=== PATIENT | female | born 1950 | race Caucasian/White ===

== ENCOUNTER 2017-01-25 18:53 | Emergency (ER) | payer MEDICARE ==
[2017-01-25 19:01] VITALS: BP 123/73
--- NOTE | 2017-01-25 19:25 | ER Document Report ---
ED Skin Rash/Insect Bite/Abscs - General Chief Complaint: Skin Problem Stated Complaint: SKIN PROBLEM Time Seen by Provider: 01/25/17 19:24 Notes: The patient is a 66-year-old female who presents with several weeks of a diffuse pruritic rash. She is homeless for the past 2 months and was living [place]. She saw 2 prior physicians for this and was started on 2 on no medications. There is mild improvement of her symptoms after she thinks an antibiotic. She has never heard of permethrin. She denies fevers, chest pain, shortness of breath, nausea or vomiting. TRAVEL OUTSIDE OF THE [place] IN LAST 30 DAYS: No Past Medical History - General Information source: Patient - Social History Smoking Status: Unknown if Ever Smoked Family History: Reviewed & Not Pertinent Renal/ Medical History: Denies: Hx Peritoneal Dialysis Review of Systems - Review of Systems Notes: REVIEW OF SYSTEMS: CONSTITUTIONAL: -fevers, -chills EENT: -eye pain, -difficulty swallowing, -nasal congestion CARDIOVASCULAR:-chest pain, -syncope. RESPIRATORY: -cough, -SOB GASTROINTESTINAL: -abdominal pain, - nausea, -vomiting, -diarrhea GENITOURINARY: -dysuria, -hematuria MUSCULOSKELETAL: -back pain, -neck pain SKIN: +rash HEMATOLOGIC: -easy bruising or bleeding. LYMPHATIC: -swollen, enlarged glands. NEUROLOGICAL: -altered mental status or loss of consciousness, -headache, - neurologic symptoms PSYCHIATRIC: -anxiety, -depression. ALL OTHER SYSTEMS REVIEWED AND NEGATIVE. Physical Exam - Vital signs Vitals: Temp Pulse Resp BP Pulse Ox 97.8 F 68 12 123/73 100 01/25/17 18:56 01/25/17 18:56 01/25/17 18:56 01/25/17 18:56 01/25/17 18:56 - Notes Notes: PHYSICAL EXAMINATION: GENERAL: Well-appearing, well-nourished and in no acute distress. HEAD: Atraumatic, normocephalic. EYES: Pupils equal round and reactive to light, extraocular movements intact, sclera anicteric, conjunctiva are normal. ENT: nares patent, oropharynx clear without exudates. Moist mucous membranes. NECK: Normal range of motion, supple without lymphadenopathy LUNGS: Breath sounds clear to auscultation bilaterally and equal. No wheezes rales or rhonchi. HEART: Regular rate and rhythm without murmurs ABDOMEN: Soft, nontender, normoactive bowel sounds. No guarding, no rebound. No masses appreciated. EXTREMITIES: Normal range of motion, no pitting or edema. No cyanosis. NEUROLOGICAL: Cranial nerves grossly intact. Normal speech, normal gait. Normal sensory and motor exams. PSYCH: Normal mood, normal affect. SKIN: Diffuse erythematous crusted over pustule lesions without drainage. Located in finger webs. Course - Re-evaluation Re-evalutation: Patient has no fever. Will begin permethrin for possible scabies and Keflex for what appears to be superinfection of some of her lesions from scratching. There may also be skin popping that was causing some of her symptoms. Told her to follow with her primary care physician and dermatology. - Vital Signs Vital signs: Temp Pulse Resp BP Pulse Ox 97.8 F 68 12 123/73 100 01/25/17 18:56 01/25/17 18:56 01/25/17 18:56 01/25/17 18:56 01/25/17 18:56 Discharge - Discharge Clinical Impression: Rash Condition: Stable Disposition: HOME, SELF-CARE Additional Instructions: Use the permethrin and Keflex as instructed. Follow-up with your primary care physician for a dermatology referral. Prescriptions: Cephalexin Monohydrate [Keflex 500 mg Capsule] 500 mg PO Q8H 7 Days capsule Permethrin [Nix 1% Lotion 59 ml] 1 applic TP ONCE PRN 2 Days bottle PRN Reason: Referrals: AUDI CHI DO [ACTIVE STAFF] - Follow up as needed
== END 2017-01-25 19:36 | disposition home or self-care (01) ==
LOC: ER 18:53
DX: R21 Rash and other nonspecific skin eruption (principal)
CPT/HCPCS: 99282

== ENCOUNTER 2017-09-29 22:37 | Emergency (ER) | payer MEDICARE ==
--- NOTE | 2017-09-30 00:55 | ER Document Report ---
ED General - General Chief Complaint: Skin Problem Stated Complaint: SKIN PROBLEM Time Seen by Provider: 09/30/17 00:46 Notes: Patient is a 66-year-old female who presents with complaint of ulcerations on her bilateral forearms. There is no lesions on the palms. Patient says she has similar lesions back in November and they spontaneously went away. She has scarring from his previous lesions were. They came back a few weeks ago. She saw a fire engine pump operator and had a biopsy performed. She said she try to call the fire engine pump operator but she was told to call back. She says she when she called back later she had a voicemail and they are closed today and therefore she came to the ER to have us look at them. She denies any history of any autoimmune diseases. She denies any history of HIV or hepatitis C. She denies any associated fevers with it. She has no other complaints at this time. No new medications. TRAVEL OUTSIDE OF THE [place] IN LAST 30 DAYS: No - Related Data Allergies/Adverse Reactions: No Known Allergies Allergy (Unverified 04/13/17 22:59) Past Medical History - Social History Smoking Status: Never Smoker Frequency of alcohol use: None Drug Abuse: None Family History: Reviewed & Not Pertinent - Past Medical History Cardiac Medical History: Reports: Hx Hypertension Endocrine Medical History: Reports: Hx Diabetes Mellitus Type 1, Hx Hypothyroidism Renal/ Medical History: Denies: Hx Peritoneal Dialysis Review of Systems - Review of Systems Notes: My Normal Review Basic REVIEW OF SYSTEMS: CONSTITUTIONAL : Denies fever, chills, or sweats. Denies recent illness. EENT: Denies eye, ear, throat, or mouth pain or symptoms. Denies nasal or sinus congestion. RESPIRATORY: Denies cough, cold, or chest congestion. Denies shortness of breath, difficulty breathing, or wheezing. GASTROINTESTINAL: Denies abdominal pain. Denies nausea, vomiting, or diarrhea. Denies constipation. Last BM: MUSCULOSKELETAL: Denies neck or back pain or joint pain or swelling. SKIN: Rash on bilateral forearms. NEUROLOGICAL: Denies altered mental status or loss of consciousness. Denies headache. Denies weakness or paralysis or loss of use of either side. Denies problems with gait or speech. Denies sensory or motor loss. ALL OTHER SYSTEMS REVIEWED AND NEGATIVE. Physical Exam - Vital signs Vitals: Temp Pulse Resp BP Pulse Ox 97.9 F 101 H 18 138/83 H 98 09/29/17 23:03 09/29/17 23:03 09/29/17 23:03 09/29/17 23:03 09/29/17 23:03 - Notes Notes: General Appearance: Well nourished, alert, cooperative, no acute distress, mild obvious discomfort. Vitals: reviewed, See vital signs table. Head: no swelling or tenderness to the head Eyes: PERRL, EOMI, Conjuctiva clear Mouth: No decreasd moisture Throat: No tonsillar inflammation, No airway obstruction, No lymphadenopathy Lungs: No wheezing, No rales, No rhonci, No accessory muscle use, good air exchange bilaterally. Heart: Normal rate, Regular rythm, No murmur, no rub Extremities: strength 5/5 in all extremities, good pulses in all extremities, no swelling or tenderness in the extremities, no edema. Skin: warm, dry, appropriate color, patient has many ulcerations mostly over the dorsum of the bilateral forearms with very localized surrounding erythema. She has several areas of white scarring on both forearms from where she has had this rash in the past. Neuro: speech clear, oriented x 3, normal affect, responds appropriately to questions. Course - Re-evaluation Re-evalutation: 09/30/17 06:03 Patient later admitted that she may have slept with someone who she thinks may have had hepatitis C. Therefore aborted hepatitis panel told her that the results would not be back for 1-2 days. I gave her the culture callback number informed her that she must call them to get her results and that she needs follow-up with GI. She does have some mildly elevated liver enzymes. Her rash can be seen with that of hepatitis C. Informed is also extremely important she follows up with a fire engine pump operator to get her results from her biopsy as this will most likely give us the most information as to what could be causing her rash. I encouraged her return to ER if she has fevers, vomiting, or she feels that the rash is definitely spreading or worsening. Patient agrees with plan will be discharged home. Dictation of this chart was performed using voice recognition software; therefore, there may be some unintended grammatical errors. - Vital Signs Vital signs: Temp Pulse Resp BP Pulse Ox 98.7 F 63 16 123/72 98 09/30/17 02:28 09/30/17 02:28 09/30/17 02:28 09/30/17 02:28 09/30/17 02:28 - Laboratory Result Diagrams: 09/30/17 01:00 09/30/17 01:00 Laboratory results interpreted by me: 09/30/17 09/30/17 01:00 01:00 RDW 15.7 H Sodium 147.5 H Est GFR (Non-Af Amer) 52 L Glucose 121 H AST 113 H ALT 157 H Discharge - Discharge Clinical Impression: Rash Condition: Good Disposition: HOME, SELF-CARE Additional Instructions: Please call [phone] to get your Hepatitis results. You do have some elevated liver enzymes. This could be related to Hepatitis or possibly another cause. Please follow up with the GI physician, Dr. Tom, for reevaluation and treatment of Hepatitis if your test results are positive. If your Hepatitis results are negative you can follow up with your primary care doctor in 1 week to recheck your liver enzymes to make sure they are normalizing. Please follow up with your fire engine pump operator to get the results of your biopsy. Please return to the ER immediately if you develop fevers, worsening rash, or feel unwell. Forms: Return to Work Referrals: FRANCISCO TOM MD [ACTIVE STAFF] - Follow up in 3-5 days
[2017-09-30 01:09] LABS: ABSOLUTE BASOPHILS # (AUTO) 0.1 10^3/uL (0.0-0.2); ABSOLUTE EOSINOPHILS # (AUTO) 0.2 10^3/uL (0.0-0.6); ABSOLUTE MONOCYTES (AUTO) 0.5 10^3/uL (0.1-1.4); ABSOLUTE NEUT (AUTO) 5.2 10^3/uL (1.7-8.2); BASOPHILS % (AUTO) 0.7 % (0-2); EOSINOPHILS % (AUTO) 2.1 % (0-6); HEMATOCRIT 39.4 % (36.0-47.0); HEMOGLOBIN 12.8 g/dL (12.0-15.5); LYMPHOCYTES % (AUTO) 25.1 % (13-45); MEAN CORPUSCULAR HEMOGLOBIN 29.2 pg (27.0-33.4); MEAN CORPUSCULAR HGB CONC 32.6 g/dL (32.0-36.0); MEAN CORPUSCULAR VOLUME 90 fl (80-97); MONOCYTES % (AUTO) 6.4 % (3-13); PLATELET COUNT 270 10^3/uL (150-450); RED BLOOD COUNT 4.38 10^6/uL (3.72-5.28); RED CELL DISTRIBUTION WIDTH 15.7 % (11.5-14.0); SEGMENTED NEUTROPHILS % (AUTO) 65.7 % (42-78); TOTAL CELLS COUNTED % (AUTO) 100 %
[2017-09-30 01:42] LABS: BLOOD UREA NITROGEN 17 mg/dL (7-20); CALCIUM 9.5 mg/dL (8.4-10.2); CARBON DIOXIDE 25 mmol/L (22-30); CHLORIDE 107 mmol/L (98-107); GLUCOSE 121 mg/dL (75-110); POTASSIUM 4.5 mmol/L (3.6-5.0); SODIUM 147.5 mmol/L (137-145)
[2017-09-30 01:43] LABS: ALANINE AMINOTRANSFERASE 157 U/L (9-52); ALBUMIN 4.1 g/dL (3.5-5.0); ALKALINE PHOSPHATASE 123 U/L (38-126); ANION GAP 16 (5-19); ASPARTATE AMINO TRANSFERASE 113 U/L (14-36); BILIRUBIN,DIRECT 0.4 mg/dL (0.0-0.4); BILIRUBIN,TOTAL 0.4 mg/dL (0.2-1.3); TOTAL PROTEIN 7.5 g/dL (6.3-8.2)
[2017-09-30 02:29] VITALS: BP 123/72
[2017-10-01 08:42] LABS: HEPATITIS A AB IGM Negative (Negative); HEPATITIS B CORE AB IGM Negative (Negative); HEPATITS B SURFACE ANTIGEN Negative (Negative)
[2017-10-01 08:50] LABS: HEPATITIS C VIRUS ANTIBODY >11.0 s/co ratio (0.0-0.9)
== END 2017-09-30 03:50 | disposition home or self-care (01) ==
LOC: ER 22:37
DX: R21 Rash and other nonspecific skin eruption (principal); R74.8 Abnormal levels of other serum enzymes; E10.9 Type 1 diabetes mellitus without complications; I10 Essential (primary) hypertension; Z20.2 Contact with and (suspected) exposure to infections with a predominantly sexual mode of transmission
CPT/HCPCS: 36415; 80053; 80074; 85025; 86701; 99283

== ENCOUNTER 2017-11-12 10:18 | Emergency (ER) | payer MEDICARE ==
[2017-11-12] MEDS ORDERED: DIPH/PERTUSS(ACELL)/TETANUS VAC/PF 0.5 ML SYR (>=10YO) IM ONE (11:07)
--- NOTE | 2017-11-12 11:09 | ER Document Report ---
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 Patient fell through a hole in her ground-level floor and fell back and getting her head against the door. She denies loss of consciousness but felt dazed. She does have a lack which is approximately C3 centimeters and superficial to the back of the head. She does not have any cervical spine or thoracic or lumbar spine tenderness. GCS is 15 in triage TRAVEL OUTSIDE OF THE [place] IN LAST 30 DAYS: No - Related Data Allergies/Adverse Reactions: No Known Allergies Allergy (Verified 11/12/17 10:21) Past Medical History - Past Medical History Cardiac Medical History: Reports: Hx Hypertension Endocrine Medical History: Reports: Hx Diabetes Mellitus Type 1, Hx Hypothyroidism Renal/ Medical History: Denies: Hx Peritoneal Dialysis Physical Exam - Vital signs Vitals: Temp Pulse Resp BP Pulse Ox 98.8 F 67 16 105/65 97 11/12/17 10:30 11/12/17 10:30 11/12/17 10:30 11/12/17 10:30 11/12/17 10:30 Course - Vital Signs Vital signs: Temp Pulse Resp BP Pulse Ox 98.8 F 67 16 105/65 97 11/12/17 10:30 11/12/17 10:30 11/12/17 10:30 11/12/17 10:30 11/12/17 10:30
--- NOTE | 2017-11-12 11:28 | RADIOLOGY REPORT (SQ) ---
EXAM DESCRIPTION: CT HEAD WITHOUT COMPLETED DATE/TIME: 11/12/2017 11:18 am REASON FOR STUDY: fall, h/o shunt COMPARISON: None. TECHNIQUE: Axial images acquired through the brain without intravenous contrast. Images reviewed wi th bone, brain and subdural windows. Additional sagittal and coronal reconstructions were generated. Images stored on PACS. All CT scanners at this facility use dose modulation, iterative reconstruction, and/or weight based d osing when appropriate to reduce radiation dose to as low as reasonably achievable (ALARA). [facility]: Dose Right [facility]: CareDose [facility]: Dose Right [facility]: Teradose 4D [facility]: Smart Motribe RADIATION DOSE: CT Rad equipment meets quality standard of care and radiation dose reduction techniq ues were employed. CTDIvol: 53.2 mGy. DLP: 1070 mGy-cm. mGy. LIMITATIONS: None. FINDINGS: VENTRICLES: Prominent. CEREBRUM: No masses. No hemorrhage. No midline shift. Areas of low density in the white matter mos t likely due to chronic micro-vascular ischemic change. No evidence for acute infarction. Ventricul ar shunt via left frontal approach tip in the 3rd ventricle. CEREBELLUM: No masses. No hemorrhage. No alteration of density. No evidence for acute infarction. EXTRAAXIAL SPACES: Mild age-related involutional change. No fluid collections. No masses. ORBITS AND GLOBE: No intra- or extraconal masses. Normal contour of globe without masses. CALVARIUM: No fracture. PARANASAL SINUSES: No fluid or mucosal thickening. SOFT TISSUES: No mass or hematoma. OTHER: No other significant finding. IMPRESSION: MILD CHRONIC CHANGES OF ATROPHY AND MICROVASCULAR ISCHEMIA. Ventricular shunt catheter. NO ACUTE PROCESS. EVIDENCE OF ACUTE STROKE: NO. TECHNICAL DOCUMENTATION: JOB ID: [id number] Quality ID # [id number]: Final reports with documentation of one or more dose reduction techniques (e.g., Au tomated exposure control, adjustment of the mA and/or kV according to patient size, use of iterative reconstruction technique) 2010 [employer]- All Rights Reserved Reading location - IP/workstation name: [email or web address]
--- NOTE | 2017-11-12 12:14 | RADIOLOGY REPORT (SQ) ---
EXAM DESCRIPTION: SHUNTOGRAM SERIES COMPLETED DATE/TIME: 11/12/2017 11:37 am REASON FOR STUDY: h/o v/p shunt COMPARISON: None. TECHNIQUE: AP view of the head and neck, chest, abdomen, and pelvis. LIMITATIONS: None. FINDINGS: Ventricular shunt tubing entering the skull at vertex. The tubing terminates at the skull with no tubing in the soft tissues. Visualized portions of the chest, abdomen, and pelvis, or unremarkable. Hardware in the cervical spi ne. IMPRESSION: VENTRICULAR SHUNT TUBING DESCRIBED WHICH TERMINATES AT THE SKULL WITH NO TUBING IN TH E SOFT TISSUES. TECHNICAL DOCUMENTATION: JOB ID: [id number] [employer]- All Rights Reserved Reading location - IP/workstation name: [email or web address]
--- NOTE | 2017-11-12 12:31 | ER Document Report ---
ED General - General Chief Complaint: Fall Stated Complaint: HEAD PAIN Time Seen by Provider: 11/12/17 11:06 Mode of Arrival: Wheelchair Information source: Patient Notes: 66-year-old female history of [employer]OX [employer]ING [employer] shunt presents with complaints of a mechanical fall striking her head. Patient notes mild headache denies any neurological deficits denies any weakness numbness TRAVEL OUTSIDE OF THE [place] IN LAST 30 DAYS: No - HPI Onset: Just prior to arrival Onset/Duration: Sudden Quality of pain: Achy Severity: Mild Pain Level: 1 Associated symptoms: Headache Exacerbated by: Denies Relieved by: Denies Similar symptoms previously: No Recently seen / treated by doctor: No - Related Data Allergies/Adverse Reactions: No Known Allergies Allergy (Verified 11/12/17 10:21) Past Medical History - General Information source: Patient - Social History Smoking Status: Current Every Day Smoker Cigarette use (# per day): Yes Chew tobacco use (# tins/day): No Smoking Education Provided: No Frequency of alcohol use: None Drug Abuse: None Family History: Reviewed & Not Pertinent Patient has suicidal ideation: No Patient has homicidal ideation: No - Past Medical History Cardiac Medical History: Reports: Hx Hypertension Endocrine Medical History: Reports: Hx Diabetes Mellitus Type 1, Hx Hypothyroidism Renal/ Medical History: Denies: Hx Peritoneal Dialysis Review of Systems - Review of Systems Notes: REVIEW OF SYSTEMS: CONSTITUTIONAL : Denies fever, chills, or sweats. Denies recent illness. EENT: Denies eye, ear, throat, or mouth pain or symptoms. Denies nasal or sinus congestion or discharge. Denies throat, tongue, or mouth swelling or difficulty swallowing. CARDIOVASCULAR: Denies chest pain. Denies palpitations or racing or irregular heart beat. Denies ankle edema. RESPIRATORY: Denies cough, cold, or chest congestion. Denies shortness of breath, difficulty breathing, or wheezing. GASTROINTESTINAL: Denies abdominal pain or distention. Denies nausea, vomiting , or diarrhea. Denies blood in vomitus, stools, or per rectum. Denies black, tarry stools. Denies constipation. GENITOURINARY: Denies difficulty urinating, painful urination, burning, frequency, blood in urine, or discharge. FEMALE GENITOURINARY: Denies vaginal bleeding, heavy or abnormal periods, irregular periods. Denies vaginal discharge or odor. MUSCULOSKELETAL: Denies back or neck pain or stiffness. Denies joint pain or swelling. SKIN: Admits to sores on her arms and legs HEMATOLOGIC : Denies easy bruising or bleeding. LYMPHATIC: Denies swollen, enlarged glands. NEUROLOGICAL: Admits headache PSYCHIATRIC: Denies anxiety or stress. Denies depression, suicidal ideation, or homicidal ideation. ALL OTHER SYSTEMS REVIEWED AND NEGATIVE. PHYSICAL EXAMINATION: GENERAL: Well-appearing, well-nourished and in no acute distress. HEAD: Superficial laceration measuring 3 cm of the left scalp EYES: Pupils equal round and reactive to light, extraocular movements intact, conjunctiva are normal. ENT: Nares patent, oropharynx clear without exudates. Moist mucous membranes. NECK: Normal range of motion, supple without lymphadenopathy LUNGS: Breath sounds clear to auscultation bilaterally and equal. No wheezes rales or rhonchi. HEART: Regular rate and rhythm without murmurs ABDOMEN: Soft, nontender, nondistended abdomen. No guarding, no rebound. No masses appreciated. Female : deferred Musculoskeletal: Normal range of motion, no pitting or edema. No cyanosis. NEUROLOGICAL: Cranial nerves grossly intact. Normal speech, normal gait. Normal sensory, motor exams PSYCH: Normal mood, normal affect. SKIN: Multiple open sores all throughout the body Dictation was performed using [employer] voice recognition software Physical Exam - Vital signs Vitals: Temp Pulse Resp BP Pulse Ox 98.8 F 67 16 105/65 97 11/12/17 10:30 11/12/17 10:30 11/12/17 10:30 11/12/17 10:30 11/12/17 10:30 Course - Re-evaluation Re-evalutation: 11/12/17 13:10 CT head and [employer] shunt series noted no acute abnormality, patient is acting appropriately, it appears she is moving today to go to [place] and the injury occurred while she was getting ready for her move. I encouraged her to not drive as she may have concussive symptoms. Patient promises me she will not, she does not have any family members here but she appears to be at baseline, she overall looks well is in no distress will be given strict follow-up with a primary care physician when she arrives in [place] of her choosing Tetanus is up-to-date laceration is quite superficial does not spread open and does not require any intervention Wound care is provided here for After performing a Medical Screening Examination, I estimate there is LOW risk for ACUTE GLAUCOMA, TEMPORAL ARTERITIS, MENINGITIS, INCRANIAL HEMORRHAGE, or ISCHEMIC STROKE thus I consider the discharge disposition reasonable. I have reevaluated this patient multiple times and no significant life threatening changes are noted. The patient and I have discussed the diagnosis and risks, and we agree with discharging home with close follow-up with the understanding that symptoms and presentations can change. We also discussed returning to the Emergency Department immediately if new or worsening symptoms occur. We have discussed the symptoms which are most concerning (e.g., changing or worsening symptoms, new numbness or weakness, vomiting, fever) that necessitate immediate return. 11/12/17 13:12 11/12/17 13:12 - Vital Signs Vital signs: Temp Pulse Resp BP Pulse Ox 98.8 F 67 16 105/65 97 11/12/17 10:30 11/12/17 10:30 11/12/17 10:30 11/12/17 10:30 11/12/17 10:30 - Diagnostic Test Radiology reviewed: Image reviewed - CT head without contrast notes no acute abnormality, Reports reviewed Discharge - Discharge Clinical Impression: Abrasion, scalp w/o infection Head injury due to trauma Qualifiers: Encounter type: initial encounter Qualified Code(s): S09.90XA - Unspecified injury of head, initial encounter Condition: Stable Disposition: HOME, SELF-CARE Instructions: Head Injury Precautions ([facility]) Additional Instructions: Follow up with your physician tomorrow for further care or return to the ED IMMEDIATELY if symptoms worsen or new concerns occur. If you cannot afford to follow up with your primary care physician a list of low cost clinics have been provided at the end of your discharge papers as well.
[2017-11-12 13:14] VITALS: BP 100/62
== END 2017-11-12 13:18 | disposition home or self-care (01) ==
LOC: ER 10:18
DX: S00.01XA Abrasion of scalp, initial encounter (principal); R51 Headache; F17.210 Nicotine dependence, cigarettes, uncomplicated; W19.XXXA Unspecified fall, initial encounter; Y93.E6 Activity, residential relocation; I10 Essential (primary) hypertension; E10.9 Type 1 diabetes mellitus without complications; E03.9 Hypothyroidism, unspecified; Z98.2 Presence of cerebrospinal fluid drainage device; Z23 Encounter for immunization
CPT/HCPCS: 70450; 75809; 90471; 90715; 99284